=== PATIENT | male | born 1960 | race Native Hawaiian/Other Pacific Islander ===

== ENCOUNTER 2019-08-08 15:27 | Outpatient (CLI) | payer BC | END 2019-08-08 19:13 | disposition home or self-care (01) | LOC: LAB 15:27 | DX: R05 Cough (principal) | CPT/HCPCS: 87070; 87077; 87185; 87186; 87205 ==

== ENCOUNTER 2020-11-29 11:58 | Outpatient (CLI) | payer BC | END 2020-11-29 16:00 | disposition home or self-care (01) | LOC: LABW 11:58 | PROVIDERS: ATTEND Nurse Practitioner Family | DX: Z86.14 Personal history of Methicillin resistant Staphylococcus aureus infection (principal) | CPT/HCPCS: 87070; 87077; 87185; 87186; 87205 ==